=== PATIENT | female | born 1965 | race Hispanic/Latino ===

== ENCOUNTER 2017-12-27 09:52 | Day surgery (SDC) | payer BC ==
[~2017-12-27 09:52] MED LIST: ANCEF/STERILE WATER 2 GM/20 ML 2 GM/20 ML SYRINGE IV NR; NACL 0.9% 1000 ML 1,000 ML IV SCH
[2017-12-27 11:12] LABS: Partial Thromboplastin Time 37.2 Sec. (24.2-36.6)
[2017-12-27 11:16] LABS: Basophils % (Auto) 0.6 % (0.0-1.8); Eosinophils % (Auto) 0.4 % (0.0-4.3); Hematocrit 27.3 % (30.3-42.9); Hemoglobin 9.2 gm/dl (10.1-14.3); Lymphocytes # (Auto) 0.4 K/mm3 (1.2-5.4); Lymphocytes % (Auto) 14.2 % (13.4-35.0); Mean Corpuscular HGB Conc 34 % (30-34); Mean Corpuscular Hemoglobin 30 pg (28-32); Mean Corpuscular Volume 88 fl (79-97); Monocytes # (Auto) 0.1 K/mm3 (0.0-0.8); Monocytes % (Auto) 2.5 % (0.0-7.3); Platelet Count 168 K/mm3 (140-440); Red Blood Count 3.12 M/mm3 (3.65-5.03); Red Cell Distribution Width 13.3 % (13.2-15.2)
[2017-12-27 11:26] LABS: BUN/Creatinine Ratio 17; Blood Urea Nitrogen 12 mg/dL (7-17); Calcium 9.5 mg/dL (8.4-10.2); Hemolysis Index 1
[2017-12-27] MEDS ORDERED: HEPARIN 10,000 UNITS/10 ML ONE (11:50)
[2017-12-27] MEDS ORDERED: HEPARIN/NS 5000 UNIT/500ML(CATH LAB) 1,000 ML IR ONE (11:50)
[2017-12-27] MEDS: VERSED ONE ×2 (12:19→12:29)
[2017-12-27] MEDS: SUBLIMAZE ONE ×2 (12:19→12:29)
[2017-12-27] MEDS: XYLOCAINE 2% INFILTRATI ONE ×2 (12:24→12:29)
[2017-12-27] MEDS ORDERED: HEPARIN/NS 5000 UNIT/500ML(CATH LAB) 500 ML IR ONE (12:38)
[2017-12-27] MEDS ORDERED: PERCOCET 5/325 PO ONE (13:15)
--- NOTE | 2017-12-27 14:16 | Short Stay Summary ---
Short Stay Documentation Date of service: 12/27/17 - History Principal diagnosis: right lung cancer Past Medical History: cancer Past Surgical History: Other (radiation) Social history: no significant social history - Allergies and Medications Current Medications: Allergies No Known Allergies Allergy (Unverified 12/27/17 09:53) Home Medications Medication Instructions Recorded Confirmed Last Taken Type Benicar HCT 20-12.5 mg 1 tab PO DAILY 12/27/17 12/27/17 12/26/17 History 1 LORazepam [Ativan] 1 mg PO QHS PRN 12/27/17 12/27/17 12/26/17 History 1mg Ondansetron (Nf) [Zofran TAB] 8 mg PO Q8HR PRN 12/27/17 12/27/17 12/26/17 History 8mg Percocet 7.5/325 mg 1 tab PO Q4-6H PRN 12/27/17 12/27/17 12/26/17 History 1 RX: Simvastatin [Zocor TAB] 20 mg PO QHS 12/27/17 12/27/17 12/26/17 History 20mg buPROPion SR [Wellbutrin SR] 150 mg PO BID 12/27/17 12/27/17 12/26/17 History 150mg oxyCODONE /ACETAMINOPHEN [Percocet 1 tab PO Q6HR PRN #25 tablet 12/27/17 Unknown Rx 5/325] Active Medications Cefazolin Sodium (Ancef/Sterile Water 2 Gm/20 Ml) 2 gm in 20 mls @ 80 mls/hr IV PREOP NR; Protocol Stop: 12/27/17 23:59 Sodium Chloride (Nacl 0.9% 1000 Ml) 1,000 mls @ 42 mls/hr IV DIRECT SARAH Last Admin: 12/27/17 11:14 Dose: 42 mls/hr - Physical exam General appearance: no acute distress HEENT: Atraumatic Lungs: Normal air movement Breasts: deferred Heart: Regular rate Gastrointestinal: normal Female Genitourinary: deferred Rectal Exam: deferred Extremities: no ischemia - Brief post op/procedure progress note Date of procedure: 12/27/17 Pre-op diagnosis: right lung cancer Post-op diagnosis: same Procedure: left chest wall port Anesthesia: local Surgeon: JENARO JOHNSON Estimated blood loss: minimal Pathology: none Condition: stable - Disposition Condition at discharge: Good Disposition: [id number] TO HOME OR SELFCARE Short Stay Discharge Plan Activity: advance as tolerated Weight Bearing Status: Weight Bear as Tolerated Diet: regular Wound: keep clean and dry, per your surgeon's advice Follow up with: JENARO JOHNSON MD [Primary Care Provider] - 7 Days Prescriptions: oxyCODONE /ACETAMINOPHEN [Percocet 5/325] 1 tab PO Q6HR PRN #25 tablet PRN Reason: Pain
[2017-12-27 14:18] VITALS: BP 111/59
--- NOTE | 2017-12-27 14:20 | Operative Report ---
Operative Report Operative Report: Exam: Placement of last chest wall port Clinical indication: Patient with a history of right lung cancer status post radiation, port for chemotherapy Date: 12/27/2017 Procedure: Following an explanation of the risks, benefits and alternatives; written informed consent was obtained. The patient brought the angiographic suite and placed in supine position on the examination table. Initial ultrasound evaluation of her left neck demonstrated a patent left internal jugular veins. There were supraclavicular lymph nodes and an appropriate exit site into the internal jugular vein was chosen above the lymph nodes. The patient's left neck and chest wall were prepped and draped in the usual sterile fashion. 1% lidocaine was used for anesthesia. Under ultrasound guidance, the left internal jugular vein was cannulated with a 7 cm 18-gauge needle. A 0.035 guidewire was advanced into the IVC under fluoroscopy to document intravenous positioning. The needle was removed. An appropriate port site was chosen along the anterior left chest wall. 1% lidocaine was used for anesthesia at the port pocket and along the tunnel tract. A pocket was created using accommodation of sharp and blunt dissection and a Bard single-lumen PowerPort was then placed within the pocket. The catheter tubing was then tunneled antegrade to the venotomy site. An 8 Hungarian peel-away sheath was placed over the guidewire under fluoroscopy and advance centrally. The trocar and guidewire were removed. The 4 to be was cut to length and inserted through the peel-away sheath. The tubing was positioned in the proximal right atrium. The port flushed and aspirated easily and was then locked with appropriate volumes of heparin. The port incision was closed using 3-0 Vicryl and 4-0 Vicryl subcutaneous and subcuticular sutures. Dermabond and Steri-Strips were then applied to the port pocket and venotomy site. Sterile dressings were then applied. The patient tolerated the procedure well. There were no immediate post procedure complications. Conscious sedation was performed under the guidance of radiologic nursing. Continuous cardiopulmonary monitoring was utilized. Impression: 1) Ultrasound and fluoroscopic guided placement of left chest wall port 5 the left internal jugular vein. Care was taken to avoid the supraclavicular lymph nodes on the left.
== END 2017-12-27 14:30 | disposition home or self-care (01) ==
LOC: CATHLABREC 09:52
PROVIDERS: ATTEND Radiology Diagnostic Radiology
DX: C34.90 Malignant neoplasm of unspecified part of unspecified bronchus or lung (principal); E78.00 Pure hypercholesterolemia, unspecified; I10 Essential (primary) hypertension; G47.30 Sleep apnea, unspecified; F41.9 Anxiety disorder, unspecified; Z86.2 Personal history of diseases of the blood and blood-forming organs and certain disorders involving the immune mechanism; Z79.899 Other long term (current) drug therapy; Z87.891 Personal history of nicotine dependence
CPT/HCPCS: 36415; 36561; 80048; 85025; 85610; 85730; 99156; 99157; C1751; C1788; J1644; J2250; J3010; J7030